=== PATIENT | female | born 1960 | race American Indian/Alaskan Native ===

== ENCOUNTER 2021-01-25 12:34 | Outpatient (CLI) | payer OTHER ==
--- NOTE | 2021-01-25 16:27 | XRay Report ---
BILATERAL KNEES HISTORY: Pain COMPARISON: None. TECHNIQUE: 1 views of each knees injury ere obtained. FINDINGS: Bones: No acute fracture or dislocation. Severe right medial joint space narrowing with moderate righ t lateral joint space narrowing. Mild medial joint space narrowing of the left. Soft tissues: No significant abnormality. Additional findings: None. IMPRESSION: No evidence of acute fracture or dislocation. Osteoarthritic change within the right knee knee. Coronary. Is most severe within the medial compartm ent where there is severe joint space narrowing. Signer Name: Eduard Valentino MD Signed: 01/25/2021 4:23 PM Workstation Name: [id number]
--- NOTE | 2021-01-25 16:29 | XRay Report ---
LEFT ANKLE HISTORY: Pain. COMPARISON: None. TECHNIQUE: 2 views of the left ankle obtained. FINDINGS: Bones: No fracture or dislocation. Moderate osteoarthritic changes at the ankle mortise. Joint spaces: Maintained. Soft tissues: No significant abnormality. Additional findings: None. IMPRESSION: Left ankle without evidence of acute osseous injury. Moderate osteoarthritic change at the ankle mortise. Signer Name: Eduard Valentino MD Signed: 01/25/2021 4:24 PM Workstation Name: [id number]
--- NOTE | 2021-01-25 16:30 | XRay Report ---
Right WRIST HISTORY: RIGHT WRIST PAIN COMPARISON: None. TECHNIQUE: 2 views of the right wrist obtained. FINDINGS: Bones: No fracture or dislocation. Severe joint space narrowing and osteoarthritic changes at the fir st carpometacarpal joint. Joint spaces: Maintained. Soft tissues: No significant abnormality. Additional findings: None. IMPRESSION: Right wrist without evidence of acute osseous injury. Severe joint space narrowing and osteoarthritic change at the first carpometacarpal joint. Signer Name: Eduard Valentino MD Signed: 01/25/2021 4:25 PM Workstation Name: [id number]
== END 2021-01-25 12:35 | disposition home or self-care (01) ==
LOC: XRAY 12:34
PROVIDERS: ATTEND Internal Medicine
DX: M19.031 Primary osteoarthritis, right wrist (principal); M19.072 Primary osteoarthritis, left ankle and foot; M17.11 Unilateral primary osteoarthritis, right knee
CPT/HCPCS: 73565